=== PATIENT | male | born 1945 | race Caucasian/White ===

== ENCOUNTER → 2017-02-11 | Outpatient (REF) | payer MEDICARE ==
[~2017-02-11] MED LIST: ASPI81TA85 PO; ATOR80TA59 PO; BUPR15TASR PO; CARA1TAB6 PO; CARV6.25 PO; DIGO0.12 PO; ENTR1TAB PO; ESOM1CAP5 PO; ONDA4TAB5 PO; POTA1TAB23 PO; RANI150T PO; TORS20TA2 PO
[2017-02-11 21:06] LABS: PERCENT SATURATION 3.9 % (19.7-50.0)
== END ==
LOC: M LAB REF 17:04
PROVIDERS: ATTEND Internal Medicine Medical Oncology
DX: D50.9 Iron deficiency anemia, unspecified (principal)